=== PATIENT | female | born 1980 | race Native Hawaiian/Other Pacific Islander ===

== ENCOUNTER → 2016-11-13 | Outpatient (CLI) | payer OTHER ==
--- NOTE | 2016-11-13 11:03 | MR ---
EXAMINATION TYPE: MR lumbar spine wo/w con DATE OF EXAM: 11/13/2016 10:05 AM COMPARISON: Prior lumbar MR March, plain film 23 December 2012 HISTORY: Back pain, lumbar surgery TECHNIQUE: Multiplanar, multisequence images of the lumbar spine were acquired utilizing 15 mL intravenous Multi Ortega gadolinium contrast. Diffusion weighted imaging was performed. L1-L2: Normal disc appearance without desiccation. No herniation, protrusion or disc bulging. No ca nal stenosis is present. Foramina are patent bilaterally. L2-L3: Normal disc appearance without desiccation. No herniation, protrusion or disc bulging. No ca nal stenosis is present. Mild lateral recess encroachment due to facet arthropathy with history of ma lignant. Foramina are patent bilaterally. L3-L4: Normal disc appearance without desiccation. No herniation, protrusion or disc bulging. No ca nal stenosis is present. There is some facet arthropathy with hypertrophy of ligamentum flavum encro aching mildly on the lateral recesses. Foramina are patent bilaterally. L4-L5: Postoperative changes are noted status post laminectomy. No significant central canal stenosis. Intervertebral spacing changes present. Endplate discogenic ma rrow signal changes, spondylosis. Circumferential extension of endplate disc complex results in bilat eral foraminal encroachment. L5-S1: No evident disc herniation or foraminal encroachment, no central canal stenosis Lumbar segments are intact. No paraspinal masses are identified. Conus medullaris has a normal appe arance. Lumbar vertebral bodies show preserved height and alignment. No abnormal enhancement followin g contrast administration. IMPRESSION: Interval surgery. Additional findings above.
== END | disposition home or self-care (01) ==
LOC: RADMRIMAIN 09:07
PROVIDERS: ATTEND Anesthesiology Pain Medicine
DX: M54.5 Low back pain (principal); Z98.890 Other specified postprocedural states
CPT/HCPCS: 72158; A9577

== ENCOUNTER → 2017-04-01 | Outpatient (CLI) | payer OTHER ==
[2017-04-01 15:00] LABS: Blood Urea Nitrogen 15 mg/dL (7-17); Non-African American GFR(MDRD) >60 (>60 ml/min/1.73 sqM); Potassium 4.6 mmol/L (3.5-5.1)
== END | disposition home or self-care (01) ==
LOC: LABWHC1 14:35
PROVIDERS: ATTEND Nurse Practitioner Family
DX: L30.1 Dyshidrosis [pompholyx] (principal); L84 Corns and callosities; L70.0 Acne vulgaris; L72.0 Epidermal cyst
CPT/HCPCS: 36415; 82565; 84132; 84520

== ENCOUNTER → 2017-05-01 | Outpatient (CLI) | payer OTHER ==
[2017-05-01 12:02] LABS: Blood Urea Nitrogen 10 mg/dL (7-17); Non-African American GFR(MDRD) >60 (>60 ml/min/1.73 sqM); Potassium 4.5 mmol/L (3.5-5.1)
== END ==
LOC: LABWHC1 11:20
PROVIDERS: ATTEND Physician Assistant Medical
DX: L70.0 Acne vulgaris (principal)
CPT/HCPCS: 36415; 82565; 84132; 84520

== ENCOUNTER → 2018-08-28 | Outpatient (CLI) | payer OTHER | LOC: LABWHC1 11:55 | PROVIDERS: ATTEND Physician Assistant Medical | DX: L70.0 Acne vulgaris (principal) | CPT/HCPCS: 36415; 84132 ==

== ENCOUNTER → 2022-10-15 | Outpatient (CLI) | payer MEDICARE ==
[2022-10-15 11:55] VITALS: BP 133/89; PULSE 93; RESP 18; TEMP 98.7
--- NOTE | 2022-10-15 15:46 | P.PAINPG ---
PQRS Measure Charge Sheet Comment: HISTORY OF PRESENT ILLNESS: 41 yr old female as a referral from [facility] presents today w severe and chronic LBP since 1998 secondary to for evaluation. Pt states pain level is at 7/10 in intensity, constant, localized in the lower lumbar spine, sharp, throbbing in character w shooting pain towards the LLE. Pain is provoked by sitting/ standing/ walking for periods of 15 min, bending, lifting. Pt states injections in the past at Dr Ledbetter's office has been unsuccessful in alleviating pain. Pain is alleviated by PT in 2021 out of pocket expenses, heat, ice, medications (Ibu, Hurley), Lidoderm, laying supine, repositioning and rest. PMH: HTN, MDD PSH: C section (2005, 2006, 2013), Tubal Ligation (2013), Bicornuate uterus SH: Former tobacco user, No ETOH abuse, No illicit drug use. One daughter is . FH: Non contributory All: PCN Meds: See list REVIEW OF ORGAN SYSTEMS: CONSTITUTIONAL: No fevers or chills. No recent weight loss. NEUROLOGICAL: + numbness and tingling along the distal extremities. No seizure disorders or headaches. MUSCULOSKELETAL: + pain PSYCHIATRIC: Denies current depression or suicidal thoughts. Physical Examinations : Constitutional : Cooperative , not in acute distress . Neurologic : Cranial nerve II to XII intact. No focal neurological deficits. Psychiatric : alert & oriented x 3. Matching mood & appropriate affect. Judgment & insight intact. Musculoskeletal : Cervical Spine Motor strength in the deltoid and biceps: Normal right side. Normal Left side Motor strength biceps and the wrist extensors: Normal right side . Normal left side Motor strength in the triceps muscle: N ormal right side. Normal left side Deep tendon reflexes: Normal at the biceps. Normal at Brachioradialis. Normal at triceps Vertebral body tenderness to deep palpation over Cervical facet loading test: positive bilaterally Spurling test: positive bilaterally Neck distraction test: positive bilaterally Susan sign: positive bilaterally Lumbar spine Motor strength lower extremities ,thigh and legs 5/5 Right side , 5/5 Left side Deep tendon reflexes : Normal Knee Jerk. Normal Ankle Jerk Vertebral body tenderness over Lumbar facet Loading Test: positive Right / positive Left Range of motion of the lumbar spine Flexion 30 degrees, extension 10 degrees Straight Leg Raise test: Left/ Right positive at degree Wolf test: positive right / positive left jump reflex over BL L4-L5, L5-S1 facets Severe tenderness over the Sacroiliac joint on the Right / Left sides Gaenslen test: positive bilaterally Seated flexion test: positive bilaterally. Sacral spine : Severe tenderness over the Sacroiliac joint: right side / left side Range of motion: Flexion of the lumbar spine <60 degrees Range of motion: Extension of the lumbar spine <20 degrees Gaenslen's Test positive Curtis's Test positive Wolf test: positive right side / left side Thigh Thrust Test Sacral Thrust Test Imaging: MRI without contrast of the lumbar spine from 03/31/21 reviewed Assessment/ Plan : Lumbar spondylosis Recommendation of BL RFA L4-L5, L5-S1. Pt states she had BL RFA performed at Dr Edge's office in December 2017 with moderate relief. Obtaining records. Risks, benefits of procedure discussed and patient verbalized understanding. Admits to aspirin or anti- coagulant use or medical history of diabetes. Protocol for discontinuation/ continuation of medications polo procedure discussed. All questions answered. I have spent greater than 30 minutes on patient care today. Dr Harden was available by phone for the evaluation of this patient. The time was used to review the medical records including relevant urine studies and Prescription history (MAPs), review of the available imaging, evaluation and examination of the patient, coordination of care with the medical staff and if applicable referring physicians, as well as creation of the medical record PQRS Narrative: Smoking Status Never smoker Home Medications: Ambulatory Orders Nhs-Cnab-Rzsvn Acid [-U Capsule (formulary)] 1 tab PO DAILY 06/11/14 oxyCODONE-APAP 10-325MG [Percocet 10-325 mg] 1 tab PO DAILY PRN 06/11/14 oxyCODONE HCL/ACETAMINOPHEN [Oxycodone-Acetaminophen 10-325] 07/02/14 lisinopriL [Zestril] 10 mg PO DAILY #30 tab 07/05/14 oxyCODONE-APAP 10-325MG [Percocet 10-325 mg] 1 each PO Q6H PRN #30 tab 07/05/14 Controlled Substance Measures - Controlled Substance Measures Is patient prescribed a controlled substance at discharge?: No
== END ==
LOC: PNWHC3 10:35
PROVIDERS: ATTEND Specialist
DX: M47.816 Spondylosis without myelopathy or radiculopathy, lumbar region (principal); I10 Essential (primary) hypertension; F33.1 Major depressive disorder, recurrent, moderate; Z88.0 Allergy status to penicillin
CPT/HCPCS: 99211

== ENCOUNTER 2024-10-18 13:23 | Emergency (ER) | payer MEDICARE ==
[2024-10-18 13:32] VITALS: RESP 20; TEMP 98.3
--- NOTE | 2024-10-18 13:50 | ED ---
Abdominal Pain HPI - General Chief Complaint: Abdominal Pain Stated Complaint: Abd pain Time Seen by Provider: 10/18/24 13:32 Source: patient, EMS, RN notes reviewed Mode of arrival: EMS Limitations: no limitations - History of Present Illness Initial Comments: This is a 43-year-old female who presents to the emergency department for abdominal pain. Patient reports epigastric and right upper quadrant pain starting 2 days ago. States that this started in the evening 2 days ago and has since been intermittent. She has associated nausea and vomiting. Denies any changes in bowel or bladder habits. States that she has not been eating as a result of this pain. Denies any history of gallstones or similar symptoms in the past. She is also currently on her second week of scabies treatment. MD Complaint: abdominal pain - Related Data Home Medications Medication Instructions Recorded Confirmed Ugn-Ptsr-Emtcp Acid 1 tab PO DAILY 06/11/14 06/28/14 [-U Capsule (formulary)] oxyCODONE-APAP 10-325MG [Percocet 1 tab PO DAILY PRN 06/11/14 06/28/14 10-325 mg] oxyCODONE HCL/ACETAMINOPHEN 07/02/14 07/02/14 [Oxycodone-Acetaminophen 10-325] Previous Rx's Medication Instructions Recorded lisinopriL [Zestril] 10 mg PO DAILY #30 tab 07/05/14 oxyCODONE-APAP 10-325MG [Percocet 1 each PO Q6H PRN #30 tab 07/05/14 10-325 mg] Celecoxib 200 mg PO BID PRN #30 cap 10/18/24 Famotidine 40 mg PO DAILY 14 Days #14 tablet 10/18/24 Ondansetron Odt [Zofran Odt] 4 mg PO Q8HR PRN #20 tab 10/18/24 Allergies Allergy/AdvReac Type Severity Reaction Status Date / Time penicillin G Allergy Rash/Hives Verified 10/18/24 13:32 Review of Systems ROS Statement: Those systems with pertinent positive or pertinent negative responses have been documented in the HPI. ROS Other: All systems not noted in ROS Statement are negative. Past Medical History Past Medical History: Hypertension Additional Past Medical History / Comment(s): Chronic severe back pain. Bicornu ate uterus History of Any Multi-Drug Resistant Organisms: None Reported Past Surgical History: Back Surgery, Section Additional Past Surgical History / Comment(s): sections 2005, 2006 Past Anesthesia/Blood Transfusion Reactions: No Reported Reaction Past Psychological History: Depression Smoking Status: Never smoker Past Alcohol Use History: None Reported Past Drug Use History: None Reported General Exam Limitations: no limitations General appearance: alert, in no apparent distress Head exam: Present: atraumatic, normocephalic, normal inspection Respiratory exam: Present: normal lung sounds bilaterally. Absent: respiratory distress, wheezes, rales, rhonchi, stridor Cardiovascular Exam: Present: regular rate, normal rhythm, normal heart sounds. Absent: systolic murmur, diastolic murmur, rubs, gallop, clicks GI/Abdominal exam: Present: soft, tenderness (Epigastric and RUQ), normal bowel sounds. Absent: distended Neurological exam: Present: alert, oriented X3, CN II-XII intact Psychiatric exam: Present: normal affect, normal mood Skin exam: Present: warm, dry, intact, normal color. Absent: rash Course Vital Signs 10/18/24 10/18/24 10/18/24 13:28 14:45 16:39 Temperature 98.3 F Pulse Rate 67 86 81 Respiratory 20 20 20 Rate Blood Pressure 119/76 109/71 122/69 O2 Sat by Pulse 98 99 100 Oximetry Medical Decision Making - Medical Decision Making This is a 43-year-old female who presents to the emergency department for abdominal pain. Was pt. sent in by a medical professional or institution? @ -No Did you speak to anyone other than the patient for history? @ -No Did you review nursing and triage notes? @ -Yes, and I agree, it is accurate with regards to the patient's symptoms. Were old charts reviewed? @ -No Differential Diagnosis? @ -Differential Abdominal Pain Women: Appendicitis, Cholecystitis, diverticulosis, ischemic bowel, pancreatitis, hepatitis, UTI, gastroenteritis, AAA, incarcerated hernia, bowel obstruction, constipation, inflammatory bowel, hepatitis, peptic ulcer disease, splenic infarction, perforated viscus, vulvitis, ovarian torsion, PID, kidney stone, placenta abruption, this is not meant to be an all-inclusive list EKG interpreted by me (3pts min.)? @ -EKG interpreted by me demonstrating the following: Sinus rhythm. Ventricular rate 83 bpm, MS interval 159 ms, QRS duration 89 ms, QTc 414 ms. X-rays interpreted by me (1pt min.)? @ -Not obtained CT interpreted by me (1pt min.)? @ -CT scan of the abdomen and pelvis obtained. My interpretation identifies no evidence of bowel wall thickening or free air. U/S interpreted by me (1pt. min.)? @ -Gallbladder ultrasound obtained. My interpretation identifies no evidence of cholelithiasis. What testing was considered but not performed? (CT, X-rays, U/S, labs)? Why? @ -None What meds were considered but not given? Why? @ -None Did you discuss the management of the patient with other professionals? @ -No Did you reconcile home meds? @ -No Was smoking cessation discussed for >3mins.? @ -No Was critical care preformed (if so, how long)? @ -No Were there social determinants of health that impacted care today? How? (Homelessness, low income, unemployed, alcoholism, drug addiction, transportation, low edu. Level, literacy, decrease access to med. care, [facility], rehab)? @ -No Was there de-escalation of care discussed even if they declined? (Discuss DNR or withdrawal of care, Hospice)? @ -No What co-morbidities impacted this encounter? (DM, HTN, Smoking, COPD, CAD, Cancer, CVA, Hep., AIDS, mental health diagnosis, sleep apnea, morbid obesity)? @ -None Was patient admitted / discharged? @ -Discharged. Lab work demonstrates leukocytosis with a white blood cell count of 13.9. LFTs are mildly elevated, however we have no recent values for comparison. We started with a gallbladder ultrasound. She has a mildly dilated CBD measuring 7 mm without evidence of an obstructing stone. There was no evidence of cholelithiasis or acute cholecystitis. Given that she did have the leukocytosis and was still uncomfortable, CT scan of the abdomen and pelvis was obtained. No acute process was identified. Additionally, CBD appeared normal on this finding and they advised that the findings described on the ultrasound are likely artifactual. Pain was managed in the emergency department and she was tolerating oral intake without difficulty. Discussed possibilities such as an ulcer or biliary dyskinesia contributing to her symptoms. Advised she follow-up with her primary care provider in the next couple of days and discuss a HIDA scan for further evaluation of symptoms. Prescription for famotidine, Zofran, and Celebrex provided for additional symptomatic management. Patient discharged home in stable condition. Case discussed with ED attending, Dr. Lizama. Return precautions reviewed in depth, the patient is instructed to return to the emergency department with any new, worsening, or concerning symptoms. Patient verbalized understanding. Undiagnosed new problem with uncertain prognosis? @ -None Drug Therapy requiring intensive monitoring for toxicity (Heparin, Nitro, Insulin, Cardizem)? @ -None Were any procedures done? @ -None Diagnosis/symptom? @ -Abdominal pain, nausea and vomiting Acute, or Chronic, or Acute on Chronic? @ -Acute Uncomplicated (without systemic symptoms) or Complicated (systemic symptoms)? @ -Uncomplicated Side effects of treatment? @ -None Exacerbation, Progression, or Severe Exacerbation] @ -Not applicable Poses a threat to life or bodily function? @ -No - Lab Data Result diagrams: 10/18/24 14:15 10/18/24 14:15 Lab Results 10/18/24 10/18/24 10/18/24 Range/Units 14:15 14:15 14:15 WBC 13.9 H (3.8-10.6) k/uL RBC 4.87 (3.80-5.40) m/uL Hgb 15.9 (11.4-16.0) gm/dL Hct 44.8 (34.0-46.0) % MCV 91.9 (80.0-100.0) fL MCH 32.6 (25.0-35.0) pg MCHC 35.4 (31.0-37.0) g/dL RDW 12.8 (11.5-15.5) % Plt Count 321 (150-450) k/uL MPV 7.8 Neutrophils % 75 % Lymphocytes % 19 % Monocytes % 3 % Eosinophils % 1 % Basophils % 0 % Neutrophils # 10.4 H (1.3-7.7) k/uL Lymphocytes # 2.6 (1.0-4.8) k/uL Monocytes # 0.5 (0-1.0) k/uL Eosinophils # 0.2 (0-0.7) k/uL Basophils # 0.0 (0-0.2) k/uL Sodium 133 L (137-145) mmol/L Potassium 4.5 (3.5-5.1) mmol/L Chloride 100 (98-107) mmol/L Carbon Dioxide 25 (22-30) mmol/L Anion Gap 8 mmol/L BUN 15 (7-17) mg/dL Creatinine 0.73 (0.52-1.04) mg/dL Est GFR (CKD-EPI)AfAm >90 (>60 ml/min/1.73 sqM) Est GFR (CKD-EPI)NonAf >90 (>60 ml/min/1.73 sqM) Glucose 148 H (74-99) mg/dL Plasma Lactic Acid Minor 1.2 (0.7-2.0) mmol/L Calcium 9.2 (8.4-10.2) mg/dL Total Bilirubin 1.0 (0.2-1.3) mg/dL AST 46 H (14-36) U/L ALT 132 H (4-34) U/L Alkaline Phosphatase 90 (38-126) U/L Troponin I (0.000-0.034) ng/mL Total Protein 6.6 (6.3-8.2) g/dL Albumin 4.0 (3.5-5.0) g/dL Amylase 34 (30-110) U/L Lipase 37 (23-300) U/L HCG, Qual Not Detected Urine Color Urine Appearance (Clear) Urine pH (5.0-8.0) Ur Specific [place] (1.001-1.035) Urine Protein (Negative) Urine Glucose (UA) (Negative) Urine Ketones (Negative) Urine Blood (Negative) Urine Nitrite (Negative) Urine Bilirubin (Negative) Urine Urobilinogen (<2.0) mg/dL Ur Leukocyte Esterase (Negative) Urine RBC (0-5) /hpf Urine WBC (0-5) /hpf Ur Squamous Epith Cells (0-4) /hpf Urine Mucus (None) /hpf Urine HCG, Qual (Not Detectd) Urine Opiates Screen (NotDetected) Ur Oxycodone Screen (NotDetected) Urine Methadone Screen (NotDetected) Ur Barbiturates Screen (NotDetected) U Tricyclic Antidepress (NotDetected) Ur Phencyclidine Scrn (NotDetected) Ur Amphetamines Screen (NotDetected) U Methamphetamines Scrn (NotDetected) U Benzodiazepines Scrn (NotDetected) Urine Cocaine Screen (NotDetected) U Marijuana (THC) Screen (NotDetected) 10/18/24 10/18/24 10/18/24 Range/Units 14:15 14:17 14:17 WBC (3.8-10.6) k/uL RBC (3.80-5.40) m/uL Hgb (11.4-16.0) gm/dL Hct (34.0-46.0) % MCV (80.0-100.0) fL MCH (25.0-35.0) pg MCHC (31.0-37.0) g/dL RDW (11.5-15.5) % Plt Count (150-450) k/uL MPV Neutrophils % % Lymphocytes % % Monocytes % % Eosinophils % % Basophils % % Neutrophils # (1.3-7.7) k/uL Lymphocytes # (1.0-4.8) k/uL Monocytes # (0-1.0) k/uL Eosinophils # (0-0.7) k/uL Basophils # (0-0.2) k/uL Sodium (137-145) mmol/L Potassium (3.5-5.1) mmol/L Chloride (98-107) mmol/L Carbon Dioxide (22-30) mmol/L Anion Gap mmol/L BUN (7-17) mg/dL Creatinine (0.52-1.04) mg/dL Est GFR (CKD-EPI)AfAm (>60 ml/min/1.73 sqM) Est GFR (CKD-EPI)NonAf (>60 ml/min/1.73 sqM) Glucose (74-99) mg/dL Plasma Lactic Acid Minor (0.7-2.0) mmol/L Calcium (8.4-10.2) mg/dL Total Bilirubin (0.2-1.3) mg/dL AST (14-36) U/L ALT (4-34) U/L Alkaline Phosphatase (38-126) U/L Troponin I <0.012 (0.000-0.034) ng/mL Total Protein (6.3-8.2) g/dL Albumin (3.5-5.0) g/dL Amylase (30-110) U/L Lipase (23-300) U/L HCG, Qual Urine Color Yellow Urine Appearance Cloudy H (Clear) Urine pH 6.0 (5.0-8.0) Ur Specific [place] 1.030 (1.001-1.035) Urine Protein 1+ H (Negative) Urine Glucose (UA) Negative (Negative) Urine Ketones 1+ H (Negative) Urine Blood Negative (Negative) Urine Nitrite Negative (Negative) Urine Bilirubin Negative (Negative) Urine Urobilinogen 4.0 (<2.0) mg/dL Ur Leukocyte Esterase Trace H (Negative) Urine RBC 2 (0-5) /hpf Urine WBC 4 (0-5) /hpf Ur Squamous Epith Cells 9 H (0-4) /hpf Urine Mucus Many H (None) /hpf Urine HCG, Qual Not Detected (Not Detectd) Urine Opiates Screen (NotDetected) Ur Oxycodone Screen (NotDetected) Urine Methadone Screen (NotDetected) Ur Barbiturates Screen (NotDetected) U Tricyclic Antidepress (NotDetected) Ur Phencyclidine Scrn (NotDetected) Ur Amphetamines Screen (NotDetected) U Methamphetamines Scrn (NotDetected) U Benzodiazepines Scrn (NotDetected) Urine Cocaine Screen (NotDetected) U Marijuana (THC) Screen (NotDetected) 10/18/24 Range/Units 14:37 WBC (3.8-10.6) k/uL RBC (3.80-5.40) m/uL Hgb (11.4-16.0) gm/dL Hct (34.0-46.0) % MCV (80.0-100.0) fL MCH (25.0-35.0) pg MCHC (31.0-37.0) g/dL RDW (11.5-15.5) % Plt Count (150-450) k/uL MPV Neutrophils % % Lymphocytes % % Monocytes % % Eosinophils % % Basophils % % Neutrophils # (1.3-7.7) k/uL Lymphocytes # (1.0-4.8) k/uL Monocytes # (0-1.0) k/uL Eosinophils # (0-0.7) k/uL Basophils # (0-0.2) k/uL Sodium (137-145) mmol/L Potassium (3.5-5.1) mmol/L Chloride (98-107) mmol/L Carbon Dioxide (22-30) mmol/L Anion Gap mmol/L BUN (7-17) mg/dL Creatinine (0.52-1.04) mg/dL Est GFR (CKD-EPI)AfAm (>60 ml/min/1.73 sqM) Est GFR (CKD-EPI)NonAf (>60 ml/min/1.73 sqM) Glucose (74-99) mg/dL Plasma Lactic Acid Minor (0.7-2.0) mmol/L Calcium (8.4-10.2) mg/dL Total Bilirubin (0.2-1.3) mg/dL AST (14-36) U/L ALT (4-34) U/L Alkaline Phosphatase (38-126) U/L Troponin I (0.000-0.034) ng/mL Total Protein (6.3-8.2) g/dL Albumin (3.5-5.0) g/dL Amylase (30-110) U/L Lipase (23-300) U/L HCG, Qual Urine Color Urine Appearance (Clear) Urine pH (5.0-8.0) Ur Specific [place] (1.001-1.035) Urine Protein (Negative) Urine Glucose (UA) (Negative) Urine Ketones (Negative) Urine Blood (Negative) Urine Nitrite (Negative) Urine Bilirubin (Negative) Urine Urobilinogen (<2.0) mg/dL Ur Leukocyte Esterase (Negative) Urine RBC (0-5) /hpf Urine WBC (0-5) /hpf Ur Squamous Epith Cells (0-4) /hpf Urine Mucus (None) /hpf Urine HCG, Qual (Not Detectd) Urine Opiates Screen Detected H (NotDetected) Ur Oxycodone Screen Not Detected (NotDetected) Urine Methadone Screen Not Detected (NotDetected) Ur Barbiturates Screen Not Detected (NotDetected) U Tricyclic Antidepress Not Detected (NotDetected) Ur Phencyclidine Scrn Not Detected (NotDetected) Ur Amphetamines Screen Detected H (NotDetected) U Methamphetamines Scrn Not Detected (NotDetected) U Benzodiazepines Scrn Not Detected (NotDetected) Urine Cocaine Screen Not Detected (NotDetected) U Marijuana (THC) Screen Detected H (NotDetected) - Radiology Data Radiology results: report reviewed, image reviewed Disposition Clinical Impression: Abdominal pain, Nausea and vomiting Disposition: HOME SELF-CARE Instructions (If sedation given, give patient instructions): Peptic Ulcer (ED), Abdominal Pain (ED) Additional Instructions: Return to the emergency department with any new, worsening, or concerning symptoms. Take the famotidine daily for the next 2 weeks. Take the Celebrex twice daily as needed for pain relief. Take this with Tylenol for additional be nefit. Take the Zofran up to every 8 hours as needed for nausea and vomiting. Follow-up with your primary care provider in the next couple of days. You may need a HIDA scan for further evaluation of your gallbladder function. Prescriptions: Celecoxib 200 mg PO BID PRN #30 cap PRN Reason: Pain Famotidine 40 mg PO DAILY 14 Days #14 tablet Ondansetron Odt [Zofran Odt] 4 mg PO Q8HR PRN #20 tab PRN Reason: Nausea And Vomiting Is patient prescribed a controlled substance at d/c from ED?: No Referrals: Tere Rae MD [Primary Care Provider] - 1-2 days Time of Disposition: 16:14
[2024-10-18] MEDS: KETOROLAC 15 MG/ML 1 ML VIAL IVP STA (14:18)
[2024-10-18] MEDS: SODIUM CHLORIDE 0.9% 1,000 ML IV STA (14:18)
[2024-10-18] MEDS: FAMOTIDINE 20 MG/2 ML VIAL IV STA (14:18)
[2024-10-18] MEDS: ONDANSETRON 4 MG/2 ML VIAL IVP STA (14:18)
[2024-10-18] MEDS: HYDROmorphone 1 MG/ML 1 ML SYRINGE IVP STA (14:19)
[2024-10-18 14:38] LABS: ALT 132 U/L (4-34); AST 46 U/L (14-36); African American GFR (CKD) >90 (>60 ml/min/1.73 sqM); Alkaline Phosphatase 90 U/L (38-126); Amylase 34 U/L (30-110); Anion Gap 8 mmol/L; Blood Urea Nitrogen 15 mg/dL (7-17); Calcium 9.2 mg/dL (8.4-10.2); Carbon Dioxide 25 mmol/L (22-30); Chloride 100 mmol/L (98-107); Glucose 148 mg/dL (74-99); Lipase 37 U/L (23-300); Non-African American GFR(CKD) >90 (>60 ml/min/1.73 sqM); Potassium 4.5 mmol/L (3.5-5.1); Sodium 133 mmol/L (137-145); Total Protein 6.6 g/dL (6.3-8.2)
[2024-10-18 14:52] LABS: Amphetamine Screen,Urine Detected (NotDetected); Barbiturate Screen,Urine Not Detected (NotDetected); Benzodiazepines Screen,Urine Not Detected (NotDetected); Cocaine Screen,Urine Not Detected (NotDetected); Methadone Screen, Urine Not Detected (NotDetected); Opiate Screen,Urine Detected (NotDetected); Phencyclidine Screen,Urine Not Detected (NotDetected); Tricyclic Antidepressant,Urine Not Detected (NotDetected); Urn Cannabinoid Scrn Detected (NotDetected)
[2024-10-18 14:53] LABS: Oxycodone Screen, Urine Not Detected (NotDetected)
[2024-10-18 14:55] LABS: Basophils % (A) 0 %; Eosinophils # (A) 0.2 k/uL (0-0.7); Eosinophils % (A) 1 %; HCT 44.8 % (34.0-46.0); HGB 15.9 gm/dL (11.4-16.0); Lymphocytes # (A) 2.6 k/uL (1.0-4.8); Lymphocytes % (A) 19 %; MCH 32.6 pg (25.0-35.0); MCHC 35.4 g/dL (31.0-37.0); MCV 91.9 fL (80.0-100.0); Mean Platelet Volume 7.8; Monocytes # (A) 0.5 k/uL (0-1.0); Monocytes % (A) 3 %; Neutrophils # (A) 10.4 k/uL (1.3-7.7); Neutrophils % (A) 75 %; Platelet Count 321 k/uL (150-450); RBC 4.87 m/uL (3.80-5.40); RDW 12.8 % (11.5-15.5); WBC 13.9 k/uL (3.8-10.6)
[2024-10-18 14:57] LABS: Appearance,Urine Cloudy (Clear); Bilirubin,Urine Negative (Negative); Blood,Urine Negative (Negative); Color,Urine Yellow; Glucose,Urine (UA) Negative (Negative); Ketones,Urine 1+ (Negative); Leukocyte Esterase,Urine Trace (Negative); Mucus,Urine Many /hpf; Nitrite,Urine Negative (Negative); Protein,Urine 1+ (Negative); RBC,Urine 2 /hpf (0-5); Squamous Epithelial Cell,Urine 9 /hpf (0-4); WBC,Urine 4 /hpf (0-5)
--- NOTE | 2024-10-18 15:01 | US ---
EXAMINATION TYPE: US gallbladder DATE OF EXAM: 10/18/2024 COMPARISON: NONE CLINICAL INDICATION: Female, 43 years old with history of RUQ pain; Nausea, vomiting, and whole body rash; ? Scabies infection TECHNIQUE: Grayscale and color Doppler imaging of the right upper quadrant was performed. FINDINGS: EXAM MEASUREMENTS: Liver Length: 17.4 cm Gallbladder Wall: 0.4 cm CBD: 0.7 cm Right Kidney: 12.7 x 4.0 x 5.4 cm SOCIOLOGY ADJUNCT INSTRUCTOR NOTES:Difficult exam due to patient tolerance Pancreas: Tail obscured by overlying bowel gas Liver: Small anechoic cystic lesion measuring 1.2 cm. Gallbladder: wnl Evidence for sonographic Rapp's sign: No CBD: wnl Right Kidney: wnl IMPRESSION: 1. No sonographic evidence of cholelithiasis or acute cholecystitis. 2. Mildly dilated CBD measuring 7 mm in diameter without discrete sonographic evidence of an obstruc ting stone or other lesion. Consider ERCP or outpatient MRCP for further evaluation if symptoms persi st or as clinically indicated. [facility], , 10/18/2024 2:59 PM
[2024-10-18 15:11] LABS: HCG,Qualitative Serum Not Detected
--- NOTE | 2024-10-18 15:53 | CT ---
EXAMINATION TYPE: CT abdomen pelvis w con DATE OF EXAM: 10/18/2024 3:24 PM COMPARISON: Same day ultrasound gallbladder study. CLINICAL INDICATION: Female, 43 years old with history of Epigastric pain; Pt presents with c/o inter mittent RUQ, n/v, chills, and recent scabies infection. TECHNIQUE: Axial CT abdomen pelvis w con;Sagittal and coronal reformats were created on a separate w orkstation. Contrast used:100ml mL of Isovue 300 with IV Contrast, (none if empty) Oral contrast used: without Oral Contrast (none if empty) CT DLP: 1501.5 mGycm, Automated exposure control for dose reduction was used. FINDINGS: LOWER CHEST: Unremarkable ABDOMEN LIVER: Unremarkable. Small hypoattenuating lesions in the right and left hepatic lobes, which acute s mall accurately characterize but likely represent cysts or hemangiomas. Portal veins appear patent. GALLBLADDER AND BILE DUCTS: Unremarkable. No evidence of biliary ductal dilatation on this CT study. PANCREAS: Unremarkable. SPLEEN: Unremarkable. ADRENAL GLANDS: Unremarkable. KIDNEYS AND URETERS: No evidence of hydronephrosis or renal calculus. The ureters are unremarkable. PELVIS BLADDER: No evidence for wall thickening or mass given limitations of exam. REPRODUCTIVE: Uterus retroverted. Bilateral metallic tubal closure device is present. ABDOMEN & PELVIS STOMACH AND BOWEL: Stomach and duodenum are unremarkable. Appendix normal. No evidence of bowel obstr uction. Colonic diverticulosis without acute diverticulitis. PERITONEUM/RETROPERITONEUM: No evidence of pneumoperitoneum or free fluid. VASCULATURE: No evidence of aortic aneurysm. MUSCULOSKELETAL: No acute osseous abnormalities. L4-L5 intervertebral disc spacer device present. Mil d grade 1 anterolisthesis of L3 on L4. LYMPH NODES: No gross evidence for lymphadenopathy. SOFT TISSUE/ABDOMINAL WALL: Periumbilical fat-containing hernia. IMPRESSION: 1. No acute abnormality in the abdomen/pelvis. Specifically, CBD appears normal caliber on this stud y. Findings described on same day ultrasound study were likely artifactual. 2. Fat-containing periumbilical hernia. 3. Colonic diverticulosis without acute diverticulitis. [facility], Workstation: [id number], 10/18/2024 3:51 PM
[2024-10-18] MEDS: ONDANSETRON 4 MG ODT STARTER PACK 2 TAB BTL PO STA (16:30)
[2024-10-18] MEDS: ACET/COD 300 MG/30 MG STARTER PACK 6 TAB BTL PO STA (16:30)
[2024-10-18 16:40] VITALS: BP 122/69; PULSE 81
== END 2024-10-18 16:40 | disposition home or self-care (01) ==
LOC: EC 13:23
DX: R10.13 Epigastric pain (principal); R11.2 Nausea with vomiting, unspecified; Z88.0 Allergy status to penicillin
CPT/HCPCS: 36415; 93005; 80053; 82150; 83605; 83690; 84484; 85025; 81001; 81025; 84703; 80306; 76705; 74177; 99285; 96374; 96375 ×3; 96361; J2405; J3490; J1171; J1885; S0119; Q9967